=== PATIENT | male | born 1940 | race Caucasian/White ===

== ENCOUNTER 2017-11-02 10:17 | Inpatient (IN) | payer OTHER, BC ==
[2017-11-02] MEDS ORDERED: BISACODYL 10 MG SUPP PR PRN (14:58)
[2017-11-02] MEDS ORDERED: ACETAMINOPHEN 325 MG TAB PO PRN (15:54)
--- NOTE | 2017-11-02 16:57 | GHP ---
[f rep st] HISTORY AND PHYSICAL POST ADMISSION PHYSICIAN EVALUATION AND REHABILITATION TREATMENT PLAN DATE OF ADMISSION: 11/02/2017 DATE OF EVALUATION: November 02, 2017. TIME OF EVALUATION: 1505. REFERRING FACILITY: [facility]. REFERRING PHYSICIAN: Madyson Franklin MD IMPAIRMENT GROUP: 1.1. DATE OF ONSET: 10/28/2017. CONSULTING PHYSICIANS: He was seen in consultation by neurologist, Dr. Iraheta and railway station manager, Dr. Thomas Hunter. 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 ETIOLOGIC DIAGNOSIS: Left body involvement (right brain). HISTORY OF PRESENT ILLNESS: This patient was admitted to [facility] on 10/28/2017 with a chief complaint of left-sided weakness, facial droop, and ataxia. He was within the window for thrombolytics and was given tPA in the emergency department. CT of the head did not show any hemorrhage. He had minimal improvement after the tPA with continued left arm paralysis, left-sided facial droop and left lower extremity weakness. There was a troponin elevation to 1.4 at its peak, and there was a cardiology consultation because of this. His EKG showed right bundle branch block with left anterior fascicular block. He was treated with clopidogrel as well as aspirin. Additionally, he was started on amlodipine for blood pressure control and atorvastatin as he had dyslipidemia. He was working with physical therapy, occupational therapy, and speech therapy and was ready for inpatient rehabilitation. LABORATORIES AND STUDIES: During his stay, MRI showed an acute ischemic infarct to the right torie. Echocardiogram showed left ventricular hypertrophy and no other abnormalities noted. Lipid panel showed a cholesterol of 233, HDL of 48, LDL of 167, and triglycerides of 92. His coagulation studies were normal. Hemoglobin A1c was 5.7. Basic metabolic panel showed normal renal function and electrolytes. CBC had no abnormalities. CT of the head and neck showed minimal atherosclerotic calcification in the left carotid bifurcation and at the aortic arch with no significant stenosis and no arterial occlusion. PRECAUTIONS: He is a fall risk. He has aspiration precautions. ACTIVE COMORBIDITIES: He has no active tier 1, tier 2 or 3 comorbidities. PAST MEDICAL HISTORY: 1. Bilateral knee osteoarthritis. 2. Right eye blindness. PAST SURGICAL HISTORY: He had a hernia repair in his 20s. MEDICATIONS: Prior to admission. 1. Aspirin 81 mg p.o. daily. 2. Multivitamin. 3. Naproxen 220 mg p.o. twice daily. ADMISSION MEDICATIONS: 1. Amlodipine 5 mg p.o. daily. 2. Aspirin 81 mg p.o. daily. 3. Atorvastatin 40 mg p.o. at bedtime. 4. Clopidogrel 75 mg p.o. daily. 5. Multivitamin p.o. daily. ALLERGIES: There are no known drug allergies. FAMILY HISTORY: Noncontributory. SOCIAL HISTORY: He is . He lives with his . There are several stairs to enter the home and then 13 stairs to the 2nd floor bedroom. He has a local son who is involved in his care. 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 He has been a smoker but quit smoking approximately 6 months ago. He does not use alcohol. REVIEW OF SYSTEMS: He reports knee pain. He has had frequent urination and nurse reports small amounts. He feels thirsty and has a dry mouth. He denies chest pain and says he has not had chest pain or palpitations through the course of this event. He has blindness in the right eye. Otherwise, he denies vision changes. He has inability to move his left upper extremity at all. He has some movement of the left lower extremity. He has intact sensation throughout. He denies dyspnea. He has a rare cough with phlegm. He denies nausea, vomiting, constipation, or diarrhea. He has had reduced appetite since the stroke. He denies skin rash or skin breakdown. Otherwise, a 10-point review of systems is negative. PHYSICAL EXAM: VITAL SIGNS: Blood pressure is 133/68, heart rate is 100, respiratory rate is 20 and oxygen saturation is 91% on room air. Temperature and weight are not yet recorded. GENERAL: This is an obese man lying in bed, dressed in a hospital gown, appears his chronologic age, cooperative and in no acute distress. HEENT: Extraocular movements overall are intact. He appears to have resting adduction of the right eye. Left pupil is round and reactive to light. Right pupil does not react to light and it is unclear whether there is an afferent pupillary defect. Mucous membranes are dry. Dentition is in good condition. He has an uncrowded airway, Mallampati class 2. NECK: Supple. HEART: He is tachycardic. There are a regular rate and rhythm. There are no murmurs, rubs, or gallops. LUNGS: Clear to auscultation bilaterally. ABDOMEN: Soft, nontender, nondistended with normoactive bowel sounds. There is no hepatosplenomegaly. EXTREMITIES: There is no cyanosis, clubbing, or edema. Radial are 2+ bilaterally; pedal pulses are diminished . SKIN: He has long dystrophic nails and multiple callused areas on his plantar foot. NEUROLOGIC: Other than his right eye pupil and possible abnormal eye movements, he has a left facial droop however, he is able to maintain a labial seal. His tongue protrudes midline. Ptherwise cranial nerves II to XII are grossly intact. He has flaccid paralysis of the left upper extremity, but he is able to shrug his shoulder. He has limited movement to the left lower extremity. Sensation is intact to light touch. Plantar reflex is indeterminate on the right and upgoing on the left. There is no extinction to double simultaneous stimulation. CURRENT LEVEL OF FUNCTION: Regarding diet, feeding, and swallowing, he was on a regular diet with thin liquids, but he needed supervision. Grooming was done after set up. For bathing, dressing and toileting, he needed assistance. For bed mobility, he needed maximal assistance. For his transfers, sit to stand, he needed maximal assistance of 2 people, and nursing staff was using a lift for transfers. For balance, static balance sitting was fair plus; standing static balance was poor, requiring maximal assistance. He had poor dynamic balance. His endurance was poor. He was dependent on assistance for any evaluation of gait. He was noted to have dysarthria. Regarding cognition, he needed moderate assistance. He could follow simple directions. He was oriented times 3-4, but he appears to be more cognitive fully intact on exam today. IMPRESSION: This patient is a 77-year-old man who suffered a left pontine cerebrovascular accident on 10/28/2017. He met criteria for thrombolytics however, he did not have improved function after administration of tPA, and he comes to inpatient rehabilitation with profound left-sided weakness especially in the upper extremities. He has obesity as well, which adds to the mobility challenge in rehabilitation. He had myocardial ischemia coincident with a stroke as evidenced by an elevated troponin; however, there were no EKG changes. He has been placed on medications for cerebrovascular as well as coronary artery disease prophylaxis with atorvastatin, amlodipine, clopidogrel and aspirin. He is otherwise medically stable and ready for inpatient rehabilitation. The etiology of the stroke is not clear. Echocardiogram was normal except for left ventricular hypertrophy, and there was no atrial fibrillation seen on EKG. Cardiology plans to place a LINQ monitor for 30 day evaluation for occult atrial fibrillation. He has chronic bilateral knee pain for which he was taking naproxen. He also reports that he has had hyaluronic acid knee injections. He was planning on having repeat injections before the [employer] in May in which he is a usual participant. His goal is to complete a rehabilitation stay and then go home with family, home health care and any durable medical equipment that might be needed for a safe discharge. It is expected that he will achieve standby assist to moderate independence with mobility, ADLs, cognition and medication management. There will be medication education and neurologic education for the patient and his family and there will be family education for him to go home with needed services and equipment. He will have therapy with physical therapy, occupational therapy, and speech and language pathology for 45-60 minutes per day on 5-7 days of the week. His expected duration of stay is 14-17 days. It is anticipated that upon discharge he will continue to benefit from home health services including speech and language pathology, occupational therapy and physical therapy as well as a stroke support group. PLAN: 1. Debility and left upper and lower extremity hemiparesis, status post right pontine cerebrovascular accident. Physical therapy and occupational therapy to optimize mobility and activities of daily living towards discharge home at the standby assist to modified independent level. 2. Dysarthria, left facial droop and need for supervision with eating. He will have evaluation and treatment per Speech and Language Pathology. 3. Secondary stroke prophylaxis. Continue clopidogrel, aspirin, atorvastatin and blood pressure control. 4. Coronary artery disease status post myocardial infarction, non ST elevation. Continue medications as above as secondary prophylaxis. He is a candidate for a LINQ monitor to evaluate for occult atrial fibrillation after he discharges from inpatient rehabilitation. 5. Urinary frequency and urinating small amounts. He will have bladder scan. If the bladder scan is normal, we will proceed with a urinalysis. If he is retaining urine, we will treat with an alpha ton, most likely tamsulosin. 6. Bilateral knee pain. Unclear to the extent that this might impede his progress in therapy. We will order acetaminophen on a p.r.n. basis. If the pain is interfering with therapy, we will discuss use of other medications to include tramadol and opiates. We will avoid nonsteroidal anti-inflammatory drugs due to the risks that they hold. 7. Obesity and recent reduced appetite. He will have consultation with the dietitian. 8. Prophylaxis. He is high risk for DVT due to age, obesity, hemiparesis and reduced mobility. Will treat with enoxaparin 40 mg SQ QD and pantoprazole 40 mg QD for GI protection, especially with concomitant aspirin and clopidogrel. FOLLOWUP: The patient's primary care provider is Dr. Gabino Hahn. He is to follow up with railway station manager, Dr. Thomas Hunter and with neurologist, Dr. Giovanyn Iraheta. /[id number]/MODL MTDD
[2017-11-02] MEDS: ATORVASTATIN CALCIUM 40 MG TAB PO SCH (21:42)
[2017-11-03] MEDS: MULTIVITAMINS 1 EACH TAB PO SCH (09:29)
[2017-11-03] MEDS: ENOXAPARIN 40 MG/0.4 ML SYR SC SCH (09:29)
[2017-11-03] MEDS: CLOPIDOGREL BISULFATE 75 MG TAB PO SCH (09:29)
[2017-11-03] MEDS: ASPIRIN EC 81 MG TAB PO SCH (09:29)
[2017-11-03] MEDS: amLODIPine BESYLATE 5 MG TAB PO SCH (09:30)
--- NOTE | 2017-11-03 11:47 | SOAPPROG ---
SOAP Progress Note Assessment/Plan: Assessment: * Debility and left upper and lower extremity hemiparesis, status post right pontine cerebrovascular accident. * Physical therapy and occupational therapy to optimize mobility and activities of daily living towards discharge home at the standby assist to modified independent level. * Dysarthria, left facial droop and need for supervision with eating. * Evaluation and treatment per Speech and Language Pathology. * Secondary stroke prophylaxis. Continue clopidogrel, aspirin, atorvastatin and blood pressure control. * Coronary artery disease status post myocardial infarction, non ST elevation. Continue medications for secondary prophylaxis. * LINQ monitor to evaluate for occult atrial fibrillation after he discharges from inpatient rehabilitation. * Urinary frequency and urinating small amounts. * Bladder scan PVR 101 cc. Continue PRN bladder scans for PVR. * Initiate timed voiding. * Check urinalysis. * Consider oxybutynin. * Bilateral knee pain. * Will schedule acetaminophen 1000 mg Q 8 hr. * Consider tramadol. * Obesity and recent reduced appetite. He will have consultation with the dietitian. * Prophylaxis. He is high risk for DVT due to age, obesity, hemiparesis and reduced mobility. Will treat with enoxaparin 40 mg SQ QD and pantoprazole 40 mg QD for GI protection, especially with concomitant aspirin and clopidogrel. FOLLOWUP: The patient's primary care provider is Dr. Gabino Hahn. He is to follow up with wire mesh knitter, Dr. Thomas Hunter and with neurologist, Dr. Giovanny Iraheta. 11/03/17 14:56 Subjective: Complains of urinary frequency with small quantities. No dysuria, no fevers or chills, no cough or dyspnea, no flank pain. Slept well. Has knee pain bilaterally. Objective: Vital Signs Temp Pulse Resp BP Pulse Ox 36.7 C 75 18 161/86 H 92 11/03/17 07:48 11/03/17 07:48 11/02/17 19:56 11/03/17 09:30 11/03/17 07:48 11/02/17 11/03/17 11/04/17 05:59 05:59 05:59 Intake Total 300 238 Output Total 625 Balance -325 238 Physical Exam - Physical Exam General Appearance: WD/WN, alert, no apparent distress Respiratory: normal breath sounds, No crackles, No rhonchi, No wheezing Cardiac/Chest: regular rate, rhythm, No edema Skin: normal color, warm/dry Neuro/Psych: alert, normal mood/affect, oriented x 3, motor weakness (LUE & LLE hemiparesis), other (Observed arising from seated to standing and returning to seated with assistance of 2 physical therapists. Left upper extremity flaccid paralysis; appear to have some use of left lower extremity for standing.) ICD10 Worksheet Patient Problems: Problems Problem Status Onset CAD (coronary artery disease) Acute Right pontine CVA Acute
[2017-11-03] MEDS: SENNOSIDES 1 TAB PO PRN (21:06)
[2017-11-03] MEDS: ATORVASTATIN CALCIUM 40 MG TAB PO SCH (21:06)
[2017-11-03] MEDS: ACETAMINOPHEN 500 MG TAB PO PRN (21:13)
[2017-11-03] MEDS ORDERED: ACETAMINOPHEN 325 MG TAB PO SCH (22:00)
[2017-11-04] MEDS: POLYETHYLENE GLYCOL 3350 17 GM PKT PO SCH (08:30)
[2017-11-04] MEDS: amLODIPine BESYLATE 5 MG TAB PO SCH (08:31)
[2017-11-04] MEDS: MULTIVITAMINS 1 EACH TAB PO SCH (08:32)
[2017-11-04] MEDS: ASPIRIN EC 81 MG TAB PO SCH (08:32)
[2017-11-04] MEDS: CLOPIDOGREL BISULFATE 75 MG TAB PO SCH (08:32)
[2017-11-04] MEDS: ENOXAPARIN 40 MG/0.4 ML SYR SC SCH (10:23)
--- NOTE | 2017-11-04 15:37 | SOAPPROG ---
SOAP Progress Note Assessment/Plan: Assessment: * Debility and left upper and lower extremity hemiparesis, status post right pontine cerebrovascular accident. * Physical therapy and occupational therapy to optimize mobility and activities of daily living towards discharge home at the standby assist to modified independent level. He is beginning to show some active movement of the left hip flexors and quadriceps. * Dysarthria, left facial droop and need for supervision with eating. * Evaluation and treatment per Speech and Language Pathology. * Secondary stroke prophylaxis. Continue clopidogrel, aspirin, atorvastatin and blood pressure control. * Coronary artery disease status post myocardial infarction, non ST elevation. Continue medications for secondary prophylaxis. DIETARY RECOMMENDS CHANGING TO CARDIAC DIET AND THEREFORE WILL PLACE THIS ORDER TODAY. * LINQ monitor to evaluate for occult atrial fibrillation after he discharges from inpatient rehabilitation. * Urinary frequency and urinating small amounts. UA was negative * Bladder scan PVR 101 cc. Continue PRN bladder scans for PVR. * Initiate timed voiding. * Consider oxybutynin. * Bilateral knee pain. Discussed with Physical therapy who is concerned that knee pain although intermittent, may interfere with progress with transfer and gait training. We will order topical analgesics such as lidocaine cream or capsaicin * Will schedule acetaminophen 1000 mg Q 8 hr. * Consider tramadol. * Obesity and recent reduced appetite. He will have consultation with the dietitian. * Prophylaxis. He is high risk for DVT due to age, obesity, hemiparesis and reduced mobility. Will treat with enoxaparin 40 mg SQ QD and pantoprazole 40 mg QD for GI protection, especially with concomitant aspirin and clopidogrel. Plan: 11/04/17 15:37 Subjective: No specific complaints this morning. No problems reported by nursing staff Objective: Vital Signs Temp Pulse Resp BP Pulse Ox 36.6 C 85 16 140/79 H 92 11/04/17 06:45 11/04/17 06:45 11/04/17 06:45 11/04/17 08:31 11/04/17 06:45 11/03/17 11/04/17 11/05/17 05:59 05:59 05:59 Intake Total 300 1378 598 Output Total 625 350 43 Balance -325 1028 555 Physical Exam - Physical Exam General Appearance: WD/WN, alert, no apparent distress Respiratory: lungs clear Cardiac/Chest: No edema, No JVD Abdomen: non-tender, soft Skin: normal color, warm/dry Extremities: No swelling, No Shelli's sign Neuro/Psych: motor weakness (Left hemiplegia with no active movement of left upper extremity; 2-/5 left hip flexor and quadriceps.) ICD10 Worksheet Patient Problems: Problems Problem Status Onset CAD (coronary artery disease) Acute Right pontine CVA Acute
[2017-11-04] MEDS: SENNOSIDES 1 TAB PO PRN (20:27)
[2017-11-04] MEDS: ATORVASTATIN CALCIUM 40 MG TAB PO SCH (20:27)
[2017-11-04] MEDS: ACETAMINOPHEN 500 MG TAB PO PRN (20:27)
[2017-11-04] MEDS: MELATONIN 3 MG TAB PO SCH (20:27)
[2017-11-05] MEDS: POLYETHYLENE GLYCOL 3350 17 GM PKT PO SCH (09:04)
[2017-11-05] MEDS: CLOPIDOGREL BISULFATE 75 MG TAB PO SCH (09:05)
[2017-11-05] MEDS: MULTIVITAMINS 1 EACH TAB PO SCH (09:05)
[2017-11-05] MEDS: ASPIRIN EC 81 MG TAB PO SCH (09:05)
[2017-11-05] MEDS: amLODIPine BESYLATE 5 MG TAB PO SCH (09:05)
[2017-11-05] MEDS: ENOXAPARIN 40 MG/0.4 ML SYR SC SCH (09:12)
--- NOTE | 2017-11-05 10:01 | SOAPPROG ---
SOAP Progress Note Assessment/Plan: Assessment: * Debility and left upper and lower extremity hemiparesis, status post right pontine cerebrovascular accident. * Physical therapy and occupational therapy. He has some heel cord tightness and I will talk to his physical therapist about making sure that this is being stretched daily. Patient also coached on visualization to contract left biceps , triceps and wrist/finger extensors as well as to perform active hip flexion and knee extension as much as possible during the day. * Dysarthria, left facial droop and need for supervision with eating. * Evaluation and treatment per Speech and Language Pathology. * Secondary stroke prophylaxis. Continue clopidogrel, aspirin, atorvastatin and blood pressure control. * Coronary artery disease status post myocardial infarction, non ST elevation. Continue medications for secondary prophylaxis. * LINQ monitor to evaluate for occult atrial fibrillation after he discharges from inpatient rehabilitation. * Urinary frequency and urinating small amounts. UA was negative * He voided 100 cc this morning with a postvoid residual of 100 cc. Therefore will begin oxybutynin this a.m.. * Bilateral knee pain. Discussed with Physical therapy who is concerned that knee pain although intermittent, may interfere with progress with transfer and gait training. Will order topical analgesics such as lidocaine cream or capsaicin * Will schedule acetaminophen 1000 mg Q 8 hr. * Consider tramadol. * Obesity and recent reduced appetite. He will have consultation with the dietitian. * Prophylaxis. He is high risk for DVT due to age, obesity, hemiparesis and reduced mobility. Will treat with enoxaparin 40 mg SQ QD and pantoprazole 40 mg QD for GI protection, especially with concomitant aspirin and clopidogrel. Plan: 11/04/17 15:37 11/05/17 09:57 Subjective: He reports he is having some spasms in his left leg which are nonpainful. Nursing reports the he voided 100 cc this a.m. and had a postvoid residual of 100 cc. He denies being on medications previously for BPH. He has no other complaints this morning. Objective: Vital Signs Temp Pulse Resp BP Pulse Ox 36.9 C 71 14 151/92 H 91 L 11/05/17 06:37 11/05/17 06:37 11/05/17 06:37 11/05/17 09:05 11/05/17 06:37 11/04/17 11/05/17 11/06/17 05:59 05:59 05:59 Intake Total 1378 834 360 Output Total 350 573 110 Balance 1028 261 250 Physical Exam - Physical Exam General Appearance: WD/WN, alert, no apparent distress Respiratory: lungs clear, normal breath sounds Cardiac/Chest: No edema Abdomen: normal bowel sounds, non-tender, soft Extremities: No swelling, No Shelli's sign Neuro/Psych: motor weakness (Left upper extremity flaccid. 2/5 left iliopsoas and quadriceps. Trace tibialis anterior. Left heel cord tightness is noted.) ICD10 Worksheet Patient Problems: Problems Problem Status Onset CAD (coronary artery disease) Acute Right pontine CVA Acute
[2017-11-05] MEDS: DICLOFENAC SODIUM 1% 100 GM GEL TP SCH ×3 (13:24→20:07)
[2017-11-05] MEDS: ACETAMINOPHEN 500 MG TAB PO PRN (20:04)
[2017-11-05] MEDS: ATORVASTATIN CALCIUM 40 MG TAB PO SCH (20:05)
[2017-11-05] MEDS: DOXAZOSIN MESYLATE 4 MG TAB PO SCH (20:05)
[2017-11-05] MEDS: MELATONIN 3 MG TAB PO SCH (20:05)
[2017-11-06] MEDS: DICLOFENAC SODIUM 1% 100 GM GEL TP SCH ×4 (05:34→21:21)
[2017-11-06] MEDS: ACETAMINOPHEN 500 MG TAB PO PRN (06:20)
[2017-11-06] MEDS: ENOXAPARIN 40 MG/0.4 ML SYR SC SCH (07:41)
[2017-11-06] MEDS: amLODIPine BESYLATE 5 MG TAB PO SCH (08:05)
[2017-11-06] MEDS: ASPIRIN EC 81 MG TAB PO SCH (08:05)
[2017-11-06] MEDS: CLOPIDOGREL BISULFATE 75 MG TAB PO SCH (08:05)
[2017-11-06] MEDS: MULTIVITAMINS 1 EACH TAB PO SCH (08:05)
[2017-11-06] MEDS: POLYETHYLENE GLYCOL 3350 17 GM PKT PO SCH (08:05)
--- NOTE | 2017-11-06 11:06 | SOAPPROG ---
SOAP Progress Note Assessment/Plan: Assessment: * Debility and left upper and lower extremity hemiparesis, status post right pontine cerebrovascular accident. * Physical therapy and occupational therapy. He has some heel cord tightness and I will talk to his physical therapist about making sure that this is being stretched daily. Patient also coached on visualization to contract left biceps , triceps and wrist/finger extensors as well as to perform active hip flexion and knee extension as much as possible during the day. * Dysarthria, left facial droop and need for supervision with eating. * Evaluation and treatment per Speech and Language Pathology. * Secondary stroke prophylaxis. Continue clopidogrel, aspirin, atorvastatin and blood pressure control. * Coronary artery disease status post myocardial infarction, non ST elevation. Continue medications for secondary prophylaxis. * LINQ monitor to evaluate for occult atrial fibrillation after he discharges from inpatient rehabilitation. * Urinary frequency and urinating small amounts. UA was negative. DECIDED TO BEGIN CARDURA 4 MG AT BEDTIME INSTEAD OF OXYBUTYNIN . * Bilateral knee pain. Discussed with Physical therapy who is concerned that knee pain although intermittent, may interfere with progress with transfer and gait training. NO IMPROVEMENT WITH DICLOFENAC GEL. WE WILL BEGIN TRAMADOL 50 MG THREE TIMES DAILY. * Will schedule acetaminophen 1000 mg Q 8 hr. * Obesity and recent reduced appetite. He will have consultation with the dietitian. * Prophylaxis. He is high risk for DVT due to age, obesity, hemiparesis and reduced mobility. Will treat with enoxaparin 40 mg SQ QD and pantoprazole 40 mg QD for GI protection, especially with concomitant aspirin and clopidogrel. Plan: 11/04/17 15:37 11/05/17 09:57 11/06/17 11:05 Subjective: HE HAD A QUESTION REGARDING THE CARDURA WHICH WAS INITIATED YESTERDAY. HE CONTINUES TO COMPLAIN OF BILATERAL KNEE PAIN, NOT IMPROVED WITH THE DICLOFENAC GEL. HE HAS NO OTHER COMPLAINTS. Objective: Vital Signs Temp Pulse Resp BP Pulse Ox 36.9 C 89 16 131/76 H 92 11/06/17 06:13 11/06/17 06:13 11/06/17 06:13 11/06/17 08:05 11/06/17 06:13 11/05/17 11/06/17 11/07/17 05:59 05:59 05:59 Intake Total 832 6736 636 Output Total 578 610 50 Balance 261 1138 586 Physical Exam - Physical Exam General Appearance: WD/WN, alert, no apparent distress Respiratory: chest non-tender, lungs clear, normal breath sounds Cardiac/Chest: No edema Abdomen: normal bowel sounds, non-tender, soft, distended Skin: normal color, warm/dry Neuro/Psych: motor weakness (LOGICAL EXAM CONSISTENT WITH LEFT CRYSTAL PLEGIA WITH LEFT UPPER EXTREMITY MORE INVOLVED THAN THE LOWER EXTREMITY. HAS SOME RECRUITMENT OF LEFT HIP FLEXORS AND QUADRICEPS, THE LATTER OF WHICH INDUCES SOME MUSCLE SPASM.) ICD10 Worksheet Patient Problems: Problems Problem Status Onset CAD (coronary artery disease) Acute Right pontine CVA Acute
[2017-11-06] MEDS: traMADol 50 MG TAB PO SCH ×3 (11:32→21:25)
[2017-11-06] MEDS: DOXAZOSIN MESYLATE 4 MG TAB PO SCH (21:21)
[2017-11-06] MEDS: ATORVASTATIN CALCIUM 40 MG TAB PO SCH (21:22)
[2017-11-06] MEDS: MELATONIN 3 MG TAB PO SCH (21:24)
[2017-11-07] MEDS: DICLOFENAC SODIUM 1% 100 GM GEL TP SCH ×4 (05:47→20:32)
[2017-11-07] MEDS: ENOXAPARIN 40 MG/0.4 ML SYR SC SCH (08:22)
[2017-11-07] MEDS: CLOPIDOGREL BISULFATE 75 MG TAB PO SCH (08:23)
[2017-11-07] MEDS: POLYETHYLENE GLYCOL 3350 17 GM PKT PO SCH (08:23)
[2017-11-07] MEDS: traMADol 50 MG TAB PO SCH ×2 (08:23→17:16)
[2017-11-07] MEDS: ASPIRIN EC 81 MG TAB PO SCH (08:23)
[2017-11-07] MEDS: SENNOSIDES 1 TAB PO PRN (08:23)
[2017-11-07] MEDS: MULTIVITAMINS 1 EACH TAB PO SCH (08:23)
[2017-11-07] MEDS: amLODIPine BESYLATE 5 MG TAB PO SCH (08:24)
--- NOTE | 2017-11-07 12:31 | SOAPPROG ---
SOAP Progress Note Assessment/Plan: Assessment: * Debility and left upper and lower extremity hemiparesis, status post right pontine cerebrovascular accident. * Physical therapy and occupational therapy. He has some heel cord tightness and I will talk to his physical therapist about making sure that this is being stretched daily. Patient also coached on visualization to contract left biceps , triceps and wrist/finger extensors as well as to perform active hip flexion and knee extension as much as possible during the day. * Dysarthria, left facial droop and need for supervision with eating. * Evaluation and treatment per Speech and Language Pathology. * Secondary stroke prophylaxis. Continue clopidogrel, aspirin, atorvastatin and blood pressure control. * Coronary artery disease status post myocardial infarction, non ST elevation. Continue medications for secondary prophylaxis. * LINQ monitor to evaluate for occult atrial fibrillation after he discharges from inpatient rehabilitation. * BLADDER MANAGEMENT-Urinary frequency and urinating small amounts. UA was negative. CARDURA 4 MG AT BEDTIME WAS STARTED LAST NIGHT. PATIENT REPORTS THAT HE IS VOIDING WITHOUT DIFFICULTY. NURSING WILL OBTAIN POSTVOID RESIDUALS. HE IS ALREADY ON TIMED VOIDS. HEMATURIA MAY BE DUE TO CATHETERIZATION YESTERDAY, HOWEVER WILL OBTAIN REPEAT UA TO RULE OUT UTI. . * Bilateral knee pain. Discussed with Physical therapy who is concerned that knee pain although intermittent, may interfere with progress with transfer and gait training. NO IMPROVEMENT WITH DICLOFENAC GEL. WE WILL BEGIN TRAMADOL 50 MG THREE TIMES DAILY. * Will schedule acetaminophen 1000 mg Q 8 hr. * Obesity and recent reduced appetite. He will have consultation with the dietitian. * Prophylaxis. He is high risk for DVT due to age, obesity, hemiparesis and reduced mobility. Will treat with enoxaparin 40 mg SQ QD and pantoprazole 40 mg QD for GI protection, especially with concomitant aspirin and clopidogrel. FOOT CARE-WILL PLACE ORDER FOR PODIATRY CONSULT FOR NAIL TRIMMING. Plan: 11/04/17 15:37 11/05/17 09:57 11/06/17 11:05 11/07/17 12:32 Subjective: NO COMPLAINTS THIS A.M.. NURSING REPORTS HE HAD A LITTLE BIT OF BLOOD IN HIS URINE THIS MORNING. HE DENIES DYSURIA OR FLANK PAIN. HE WAS CATHED LAST NIGHT. OF YET, NURSING DOES NOT HAVE A PVR FROM HIS MOST RECENT VOID. HE HAS NO NEW COMPLAINTS. A PODIATRY CONSULT HAS BEEN REQUESTED FOR NAIL TRIMMING. Objective: Vital Signs Temp Pulse Resp BP Pulse Ox 36.9 C 76 16 132/86 H 91 L 11/07/17 07:19 11/07/17 07:19 11/07/17 07:19 11/07/17 08:24 11/07/17 08:15 11/06/17 11/07/17 11/08/17 05:59 05:59 05:59 Intake Total 1748 2497 600 Output Total 610 500 345 Balance 1138 1997 255 Physical Exam - Physical Exam General Appearance: WD/WN, alert, no apparent distress Respiratory: chest non-tender, lungs clear, normal breath sounds Abdomen: normal bowel sounds, non-tender, soft Male Genitalia: other (URINE NOTED TO BE PINK) Neuro/Psych: motor weakness (LEFT HEMIPLEGIA. 2/5 LEFT HIP FLEXORS AND QUADRICEPS. LEFT LOWER EXTREMITY SPASMS NOTED WHEN ATTEMPTED TO EXTEND KNEE OR DORSIFLEX FOOT.) ICD10 Worksheet Patient Problems: Problems Problem Status Onset CAD (coronary artery disease) Acute Right pontine CVA Acute
[2017-11-07] MEDS: ATORVASTATIN CALCIUM 40 MG TAB PO SCH (20:30)
[2017-11-07] MEDS: MELATONIN 3 MG TAB PO SCH (20:33)
[2017-11-07] MEDS: DOXAZOSIN MESYLATE 4 MG TAB PO SCH (20:35)
[2017-11-08] MEDS: traMADol 50 MG TAB PO SCH ×3 (05:07→16:37)
[2017-11-08] MEDS: DICLOFENAC SODIUM 1% 100 GM GEL TP SCH ×4 (07:10→20:16)
[2017-11-08] MEDS: amLODIPine BESYLATE 5 MG TAB PO SCH (08:40)
[2017-11-08] MEDS: ASPIRIN EC 81 MG TAB PO SCH (08:41)
[2017-11-08] MEDS: POLYETHYLENE GLYCOL 3350 17 GM PKT PO SCH (08:41)
[2017-11-08] MEDS: ENOXAPARIN 40 MG/0.4 ML SYR SC SCH (08:41)
[2017-11-08] MEDS: CLOPIDOGREL BISULFATE 75 MG TAB PO SCH (08:41)
[2017-11-08] MEDS: MULTIVITAMINS 1 EACH TAB PO SCH (08:41)
--- NOTE | 2017-11-08 13:36 | SOAPPROG ---
SOAP Progress Note Assessment/Plan: Assessment: * Debility and left upper and lower extremity hemiparesis, status post right pontine cerebrovascular accident. * Initial functional independence measure 58. Mod to max assist for bed mobility and transfers. Has not yet ambulated. Mod to max assist of 2 to stand at rail. Mod assist for upper body dressing, total assist for lower body. * Continue Physical therapy and occupational therapy to optimize mobility and activities of daily living towards discharge home at the standby assist to modified independent level. * Dysarthria, left facial droop and need for supervision with eating. * Evaluation and treatment per Speech and Language Pathology. * Secondary stroke prophylaxis. Continue clopidogrel, aspirin, atorvastatin and blood pressure control. * Coronary artery disease status post myocardial infarction, non ST elevation. Continue medications for secondary prophylaxis. * LINQ monitor to evaluate for occult atrial fibrillation after he discharges from inpatient rehabilitation. * Urinary frequency and urinating small amounts. * Bladder scan PVR 101 cc. Continue PRN bladder scans for PVR. * Initiate timed voiding. * No UTI on urinalysis X 2. * Doxazosin is not effective. Will d/c 11/08/2017. 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 Continue condom catheter at night for now. * Hematuria. * Has not had urethral catheterization. * Likely related to dual anti-platelet therapy as well as enoxaparin. * Advise urology evaluation after discharge. * Bilateral knee pain. * Much improved with tramadol. * Obesity and recent reduced appetite. He will have consultation with the dietitian. * Prophylaxis. He is high risk for DVT due to age, obesity, hemiparesis and reduced mobility. Will treat with enoxaparin 40 mg SQ QD and pantoprazole 40 mg QD for GI protection, especially with concomitant aspirin and clopidogrel. Anticipated discharge date of 11/25/2017, home with . FOLLOWUP: The patient's primary care provider is Dr. Gabino Hahn. He is to follow up with articulation officer, Dr. Thomas Hunter and with neurologist, Dr. Giovanny Iraheta. 11/08/17 15:35 Subjective: Has not noticed any change in urination with doxazosin. Has return of strength to the left leg but reports the leg is "wonky." Does not note return of movement to the left upper extremity. Sleeping well; says he is learning to sleep on his back. Desires to continue the condom catheter at night as he does not have to get up to urinate. Otherwise without complaint. Objective: Vital Signs Temp Pulse Resp BP Pulse Ox 36.3 C 99 16 103/64 92 11/08/17 07:12 11/08/17 07:12 11/08/17 07:12 11/08/17 08:40 11/08/17 07:12 11/07/17 11/08/17 11/09/17 05:59 05:59 05:59 Intake Total 6025 1672 560 Output Total 500 770 380 Balance 1996 902 180 Physical Exam - Physical Exam General Appearance: WD/WN, alert, no apparent distress, obese Respiratory: normal breath sounds, No crackles, No rhonchi, No wheezing Cardiac/Chest: regular rate, rhythm, No diastolic murmur, No systolic murmur Skin: normal color, warm/dry Neuro/Psych: alert, normal mood/affect, oriented x 3, motor weakness (Left facial droop, left upper extremity flaccid paralysis. Has movement to the left lower extremity.) ICD10 Worksheet Patient Problems: Problems Problem Status Onset CAD (coronary artery disease) Acute Right pontine CVA Acute
[2017-11-08] MEDS: DOXAZOSIN MESYLATE 4 MG TAB PO SCH (20:16)
[2017-11-08] MEDS: MELATONIN 3 MG TAB PO SCH (20:16)
[2017-11-08] MEDS: ATORVASTATIN CALCIUM 40 MG TAB PO SCH (20:16)
[2017-11-09] MEDS: DICLOFENAC SODIUM 1% 100 GM GEL TP SCH ×4 (06:04→19:57)
[2017-11-09] MEDS: traMADol 50 MG TAB PO SCH ×4 (06:08→21:23)
[2017-11-09] MEDS: amLODIPine BESYLATE 5 MG TAB PO SCH (08:49)
[2017-11-09] MEDS: ASPIRIN EC 81 MG TAB PO SCH (08:52)
[2017-11-09] MEDS: MULTIVITAMINS 1 EACH TAB PO SCH (08:53)
[2017-11-09] MEDS: ENOXAPARIN 40 MG/0.4 ML SYR SC SCH (08:53)
[2017-11-09] MEDS: POLYETHYLENE GLYCOL 3350 17 GM PKT PO SCH (08:53)
[2017-11-09] MEDS: CLOPIDOGREL BISULFATE 75 MG TAB PO SCH (08:58)
[2017-11-09] MEDS: ATORVASTATIN CALCIUM 40 MG TAB PO SCH (19:56)
[2017-11-09] MEDS: SENNOSIDES 1 TAB PO SCH (19:56)
[2017-11-09] MEDS: MELATONIN 3 MG TAB PO SCH (19:56)
[2017-11-10] MEDS: DICLOFENAC SODIUM 1% 100 GM GEL TP SCH ×4 (07:07→22:51)
[2017-11-10] MEDS: PANTOPRAZOLE SODIUM 40 MG TAB PO SCH (07:56)
[2017-11-10] MEDS: ENOXAPARIN 40 MG/0.4 ML SYR SC SCH (07:56)
[2017-11-10] MEDS: CLOPIDOGREL BISULFATE 75 MG TAB PO SCH (07:56)
[2017-11-10] MEDS: ASPIRIN EC 81 MG TAB PO SCH (07:56)
[2017-11-10] MEDS: MULTIVITAMINS 1 EACH TAB PO SCH (07:56)
[2017-11-10] MEDS: POLYETHYLENE GLYCOL 3350 17 GM PKT PO SCH (07:57)
[2017-11-10] MEDS: traMADol 50 MG TAB PO SCH ×3 (07:57→21:19)
[2017-11-10] MEDS: SENNOSIDES 1 TAB PO SCH ×2 (07:57→20:06)
[2017-11-10] MEDS: FLUoxetine 10 MG CAP PO SCH (07:58)
[2017-11-10] MEDS: amLODIPine BESYLATE 5 MG TAB PO SCH (07:58)
--- NOTE | 2017-11-10 09:58 | PDOREHIP ---
Admission [facility] - Admission - 3 Day Assessment Period Admission Date/Day 1: 11/02/17 Day 2: 11/03/17 Day 3: 11/04/17 - Skin Conditions Unhealed Pressure Ulcer (1 or more/Stage 1 or >)-Admission: 0. No Discharge [facility] - Discharge - 3 Day Assessment Period 2 Days Prior to Anticipated Discharge Date: 11/23/17 1 Day Prior to Anticipated Discharge Date: 11/24/17 Anticipated Discharge Date: 11/25/17
--- NOTE | 2017-11-10 10:03 | SOAPPROG ---
SOAP Progress Note Assessment/Plan: 77-year-old male with pontine stroke complicated by knee osteoarthritis and urinary incontinence Today's update: Working with social work therapist to get injection of knees to facilitate inpatient rehabilitation. Getting bilateral plain films today, portable. Also will do a condom cath during the day today, evaluate quality of bladder scans by doing 1 clean catheterization. If patient is retaining urine would treat for symptomatic BPH as he states he has a history of that with frequent urination at night. If he is fully emptying his bladder, consider a trial of oxybutynin with low dose, mindful of the anticholinergic effects on cognition. A total of 40 min was spent on the floor in the care of the patient , the majority of which was spent counseling and coordination of care regarding knee injections. Remainder of plan below otherwise relatively unchanged. * Debility and left upper and lower extremity hemiparesis, status post right pontine cerebrovascular accident. * Initial functional independence measure 58. Mod to max assist for bed mobility and transfers. Has not yet ambulated. Mod to max assist of 2 to stand at rail. Mod assist for upper body dressing, total assist for lower body. * Continue Physical therapy and occupational therapy to optimize mobility and activities of daily living towards discharge home at the standby assist to modified independent level. * Dysarthria, left facial droop and need for supervision with eating. * Evaluation and treatment per Speech and Language Pathology. * Secondary stroke prophylaxis. Continue clopidogrel, aspirin, atorvastatin and blood pressure control. * Coronary artery disease status post myocardial infarction, non ST elevation. Continue medications for secondary prophylaxis. * LINQ monitor to evaluate for occult atrial fibrillation after he discharges from inpatient rehabilitation. * Urinary frequency and urinating small amounts. * Bladder scan PVR 101 cc. Continue PRN bladder scans for PVR. * Initiate timed voiding. * No UTI on urinalysis X 2. * Doxazosin is not effective. Will d/c 11/08/2017. 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 Continue condom catheter day and night for now * Hematuria. * Has not had urethral catheterization. * Likely related to dual anti-platelet therapy as well as enoxaparin. * Advise urology evaluation after discharge. * Bilateral knee pain. * Much improved with tramadol. * Still functionally limiting, working towards getting injections to help with symptom management while in rehab. X-rays pending * Obesity and recent reduced appetite. He will have consultation with the dietitian. * Prophylaxis. He is high risk for DVT due to age, obesity, hemiparesis and reduced mobility. Will treat with enoxaparin 40 mg SQ QD and pantoprazole 40 mg QD for GI protection, especially with concomitant aspirin and clopidogrel. Anticipated discharge date of 11/25/2017, home with . FOLLOWUP: The patient's primary care provider is Dr. Gabino Hahn. He is to follow up with isobutylene operator chief, Dr. Thomas Hunter and with neurologist, Dr. Giovanny Iraheta. 11/10/17 09:47 Subjective: Chief complaint bilateral knee pain No acute events overnight. Patient endorses ongoing knee pain interfering with therapy. He states he had injection of Synvisc a few years ago but does not remember the provider. He states that it was helpful. Additionally, the patient also states that he has had a history of prostate problems, most consistent by history with benign prostatic hypertrophy, frequent urination at night. He was never on any medications or other treatment for it as far as he knew. Working with social work to try to get additional history of his medical care. Patient denies any shortness of breath or chest pain, no new numbness, tingling, or weakness. Objective: Vital Signs Temp Pulse Resp BP Pulse Ox 36.9 C 75 17 146/84 H 92 11/10/17 07:26 11/10/17 07:26 11/10/17 07:26 11/10/17 07:58 11/10/17 07:26 11/09/17 11/10/17 11/11/17 05:59 05:59 05:59 Intake Total 1060 1280 354 Output Total 955 950 400 Balance 105 330 -46 Physical Exam - Physical Exam General Appearance: alert, no apparent distress EENT: No scleral icterus (R), No scleral icterus (L) Respiratory: No respiratory distress, No accessory muscle use Cardiac/Chest: normal peripheral pulses, regular rate, rhythm Skin: normal color, warm/dry, No cyanosis, No diaphoresis Neuro/Psych: alert, normal mood/affect, other (Left-sided weakness including facial and left arm, mild tingling in the right palm of the hand sensation is intact on the left hand) ICD10 Worksheet Patient Problems: Problems Problem Status Onset CAD (coronary artery disease) Acute Right pontine CVA Acute
--- NOTE | 2017-11-10 11:40 | SOAPPROG ---
Downtime Inpatient Late Entry SOAP Note: Seen and examined and record reviewed 11/09/2017. Continued to complain of bilateral knee pain. Reported history of knee injections several years ago. He says they were not corticosteroid injections but a lubricant. He had relief of pain after the injections. Otherwise he was without complaints. Vitals were notable for adequate blood pressure control and resolution of hypoxia from previous overnights. Exam was remarkable for normal heart and lung exam, left upper and lower extremity weakness, needing moderate assist of 2 for sliding board transfer. Assessment: * Debility and left upper and lower extremity hemiparesis, status post right pontine cerebrovascular accident. * Initial functional independence measure 58. Mod to max assist for bed mobility and transfers. Has not yet ambulated. Mod to max assist of 2 to stand at rail. Mod assist for upper body dressing, total assist for lower body. * Continue Physical therapy and occupational therapy to optimize mobility and activities of daily living towards discharge home at the standby assist to modified independent level. * Dysarthria, left facial droop and need for supervision with eating. * Evaluation and treatment per Speech and Language Pathology. * Secondary stroke prophylaxis. Continue clopidogrel, aspirin, atorvastatin and blood pressure control. * Coronary artery disease status post myocardial infarction, non ST elevation. Continue medications for secondary prophylaxis. * LINQ monitor to evaluate for occult atrial fibrillation after he discharges from inpatient rehabilitation. * Urinary frequency and urinating small amounts. * Bladder scan PVR 101 cc. Continue PRN bladder scans for PVR. * Initiate timed voiding. * No UTI on urinalysis X 2. * Doxazosin is not effective. D/C'd 11/08/2017. 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 Continue condom catheter at night for now. * Hematuria. * Has not had urethral catheterization. * Likely related to dual anti-platelet therapy as well as enoxaparin. * Advise urology evaluation after discharge. * Bilateral knee pain. * Improved with tramadol but still interfering with mobility. * Discussed 11/09/2017 with Orthopedic service sole conforming machine operator regarding Synvisc injection: they have not treated him in the past and would need to do a full assessment. Cannot see him on rehabilitation unit. Advise determining previous provider and referring for follow-up. * Obesity and recent reduced appetite. He will have consultation with the dietitian. * Prophylaxis. He is high risk for DVT due to age, obesity, hemiparesis and reduced mobility. Will treat with enoxaparin 40 mg SQ QD and pantoprazole 40 mg QD for GI protection, especially with concomitant aspirin and clopidogrel. Anticipated discharge date of 11/25/2017, home with . FOLLOWUP: The patient's primary care provider is Dr. Gabino Hahn. He is to follow up with drilling field specialist, Dr. Thomas Hunter and with neurologist, Dr. Giovanny Iraheta.
[2017-11-10] MEDS: FESOTERODINE FUMARATE 4 MG TAB.ER PO SCH (15:37)
[2017-11-10] MEDS: ATORVASTATIN CALCIUM 40 MG TAB PO SCH (20:05)
[2017-11-10] MEDS: MELATONIN 3 MG TAB PO SCH (20:06)
--- NOTE | 2017-11-10 21:21 | GCON ---
[f rep st] CONSULTATION ORTHOPEDIC CONSULTATION CHIEF COMPLAINT: Bilateral knee pain. HISTORY OF PRESENT ILLNESS: The patient is a 77-year-old male, who is currently in [facility] inpatient rehab center due to a stroke. He complains of bilateral knee pain that has been ongoing for years. He states that his left knee is worse than his right. He did have hyaluronic acid injections, Synvisc in the past in the bilateral knees which helped with the discomfort, done by Dr. Davis in 2015. The patient states that his discomfort is now interfering with ambulation and movement of the knees, specifically the left knee. He denies any other orthopedic complaints. PAST MEDICAL HISTORY: Bilateral knee osteoarthritis, right eye blindness, left upper and lower extremity hemiparesis due to history of stroke, CAD, hypertension, high cholesterol, obesity, depression, urinary retention. PAST SURGICAL HISTORY: Hernia repair in his 20s. MEDICATIONS: Aspirin 81 mg, multivitamin, amlodipine, atorvastatin, Plavix. ALLERGIES: No known drug allergies. FAMILY HISTORY: Noncontributory. REVIEW OF SYSTEMS: He reports bilateral knee pain, along with frequent urination. He also states he is thirsty frequently with a dry mouth. He has blindness in his right eye, otherwise he denies any vision changes. He is unable to move his left upper extremity and difficulty moving his left lower extremity. He denies any chest pain or palpitations. He denies dyspnea. He denies nausea, vomiting, constipation, or diarrhea. He does have a reduced appetite since the stroke. He denies skin rash or breakdown. Otherwise, a 10- point review of systems is negative. PHYSICAL EXAMINATION: VITAL SIGNS: Stable. Afebrile. GENERAL: Pleasant, NAD. HEENT: N/C/AT, EOMI. He does appear to have resting adduction of the right eye. Left pupil is round and reactive to light. Right pupil does not react to light and it is unclear whether there is an apparent pupil defect. Mucous membranes are dry. NECK: Nontender to palpation, full range of motion. MUSCULOSKELETAL: Exam of bilateral knees: There is no effusion, erythema, ecchymosis or color present. Active range of motion of the right knee is 0-120 degrees. No joint line tenderness laterally or medially. He is unable to actively range his left knee or control motor function LLE. Passive range of motion is painful and limited to about 40 - 90 degrees range of motion. There is no joint line tenderness laterally or medially on either knee. Distal pulse present in the bilateral lower extremities. SKIN: Warm, dry, and intact. NEUROLOGIC: Sensation is intact to light touch bilaterally in the lower extremities. Motor notable for 3/5 globally over LLE, intact RLE. Both calves NT, neg Shelli's. PSYCHIATRIC: Alert and oriented x3. Appropriate mood and affect. DIAGNOSTIC STUDIES: Xrays reviewed of the bilateral knees and show severe osteoarthritis bilaterally. IMPRESSION: Severe bilateral knee osteoarthritis with early/developing L knee contracture 2/2 CVA and L-sided hemiparesis. PLAN: Patient was seen and examined by myself and discussed and seen by Dr. Ahn after my exam. It was discussed with the patient that since he is having significant left knee pain, that we could offer him a cortisone injection at this time, and look in to possible MOSQUEDA injections if they can be approved by his insurance while admitted as in-pt rehab pt. The patient would like to go forward with this injection to help give him some relief. All the risks, benefits, alternatives and complications were explained to the patient, including increased risk of bleeding due to him being on Plavix, and other complications such as infection. The patient does understand this, and we did proceed with a left knee cortisone injection. PROCEDURE: Under sterile conditions, the left knee was prepped over the lateral para-patellar portal, sterile technique was used throughout and using a 25-gauge needle, 3 cc of lidocaine and 3 cc of Marcaine were injected into the patient's anterolateral portal and injection tract for local anesthesia. The syringe was then changed and 1 cc of Kenalog 40 was injected in the patient's left knee. Patient tolerated the procedure well and a Band-Aid was applied along with pressure for about 1 minute. An Mitesh wrap was also applied for further compression. The procedure was done with the patient seated. Continue with PT/OT with focus on L knee stretching and passive ROM to limit/ reverse contracture. If this is unattainable, consider botox injection under the guidance of his neurologist, to restore full extension of the L knee - without this, ambulation and LLE wt bearing will be impossible. It was also discussed that he should continue with conservative treatment and activities to his tolerance. Ice on the bilateral knees 20 minutes 3-4 times a day, along with analgesics as needed to decrease the discomfort. I did discuss with the patient that we could inject his right knee at a further date, in another 2-3 weeks, to space out the cortisone medicine. The patient does understand this. If he is discharged by that time, we can see him back in the office to go forward with this injection. All questions were answered to the patient's satisfaction. Note edited by and patient seen by Dr Ahn. F/u with Dr Ahn or Dr Davis as an out-pt once d/c'd from in-pt rehab. Please call with any questions. /[id number]
[2017-11-11] MEDS: DICLOFENAC SODIUM 1% 100 GM GEL TP SCH ×4 (06:33→20:09)
[2017-11-11] MEDS: POLYETHYLENE GLYCOL 3350 17 GM PKT PO SCH (08:26)
[2017-11-11] MEDS: amLODIPine BESYLATE 5 MG TAB PO SCH (08:27)
[2017-11-11] MEDS: traMADol 50 MG TAB PO SCH ×3 (08:28→20:03)
[2017-11-11] MEDS: CLOPIDOGREL BISULFATE 75 MG TAB PO SCH (08:28)
[2017-11-11] MEDS: MULTIVITAMINS 1 EACH TAB PO SCH (08:28)
[2017-11-11] MEDS: FESOTERODINE FUMARATE 4 MG TAB.ER PO SCH (08:28)
[2017-11-11] MEDS: ASPIRIN EC 81 MG TAB PO SCH (08:28)
[2017-11-11] MEDS: FLUoxetine 10 MG CAP PO SCH (08:28)
[2017-11-11] MEDS: PANTOPRAZOLE SODIUM 40 MG TAB PO SCH (08:28)
[2017-11-11] MEDS: SENNOSIDES 1 TAB PO SCH ×2 (08:32→20:03)
[2017-11-11] MEDS: ENOXAPARIN 40 MG/0.4 ML SYR SC SCH (08:40)
--- NOTE | 2017-11-11 14:52 | SOAPPROG ---
SOAP Progress Note Assessment/Plan: Assessment: * Debility and left upper and lower extremity hemiparesis, status post right pontine cerebrovascular accident. * Initial functional independence measure 55 on 11/04/2017, improved to 58on 11/11. Mod to max assist for bed mobility and transfers; improved to minimal to moderate assist of 2 for sliding board transfers. Mod assist for upper body dressing, total assist for lower body; will progress. Requires concrete step-by -step cuing. * Continue Physical therapy and occupational therapy to optimize mobility and activities of daily living towards discharge home at the stand assist to modified independent level. * Dysarthria, left facial droop and need for supervision with eating. * Has impulsivity and requires very concrete to cues to slow down and take small bites. * Continue Speech and Language Pathology. * Secondary stroke prophylaxis. Continue clopidogrel, aspirin, atorvastatin and blood pressure control. * Coronary artery disease status post myocardial infarction, non ST elevation. Continue medications for secondary prophylaxis. * LINQ monitor to evaluate for occult atrial fibrillation after he discharges from inpatient rehabilitation. * Urinary frequency and urinating small amounts. * Bladder scan PVR 101 cc. Continue PRN bladder scans for PVR. * Initiate timed voiding. * No UTI on urinalysis X 2. * Doxazosin is not effective. Will d/c 11/08/2017. * Fesoterodine initiated yesterday at 4 mg QD. Continue several days; if no improvement, increase to 8 mg QD. * Hematuria. * Has not had urethral catheterization. * Likely related to dual anti-platelet therapy as well as enoxaparin. * Advise urology evaluation after discharge. * Bilateral knee pain. * Improved with tramadol. * Improved one day after steroid + local anesthetic injection left knee. * Obesity and recent reduced appetite. He will have consultation with the dietitian. * Prophylaxis. He is high risk for DVT due to age, obesity, hemiparesis and reduced mobility. Will treat with enoxaparin 40 mg SQ QD and pantoprazole 40 mg QD for GI protection, especially with concomitant aspirin and clopidogrel. Attended staffing, 15 min. Discussed with case management, dietitian, nursing, PT, OT, WINDOW DRESSER. Anticipated discharge date of 11/25/2017, home with . Will need to achieve independence with transfers. FOLLOWUP: The patient's primary care provider is Dr. Gabino Hahn. He is to follow up with service consultant, Dr. Thomas Hunter and with neurologist, Dr. Giovanny Iraheta. 11/11/17 14:57 Subjective: Left knee feels a little better after receiving S steroid injection yesterday. Has not noticed a change in urinary frequency. Otherwise without complaints. Objective: Vital Signs Temp Pulse Resp BP Pulse Ox 36.3 C 75 17 125/61 H 94 11/11/17 07:50 11/11/17 07:50 11/11/17 07:50 11/11/17 08:27 11/11/17 07:50 11/10/17 11/11/17 11/12/17 05:59 05:59 05:59 Intake Total 1280 1444 472 Output Total 784 1525 1050 Balance 982 -81 -648 - Time Spent With Patient Time Spent With Patient: Greater than 35 min floor time today, including more than 50% of time in coordination of care during staffing meeting, and counseling patient. Physical Exam - Physical Exam General Appearance: WD/WN, alert, no apparent distress Respiratory: normal breath sounds, No crackles, No rhonchi, No wheezing Cardiac/Chest: regular rate, rhythm, No edema Skin: normal color, warm/dry Neuro/Psych: alert, normal mood/affect, oriented x 3, motor weakness (Left upper and lower extremity) ICD10 Worksheet Patient Problems: Problems Problem Status Onset CAD (coronary artery disease) Acute Right pontine CVA Acute
[2017-11-11] MEDS: ATORVASTATIN CALCIUM 40 MG TAB PO SCH (20:03)
[2017-11-11] MEDS: MELATONIN 3 MG TAB PO SCH (20:03)
[2017-11-12] MEDS: DICLOFENAC SODIUM 1% 100 GM GEL TP SCH ×4 (05:59→19:54)
[2017-11-12] MEDS: traMADol 50 MG TAB PO SCH ×3 (08:55→20:33)
[2017-11-12] MEDS: ASPIRIN EC 81 MG TAB PO SCH (08:55)
[2017-11-12] MEDS: ENOXAPARIN 40 MG/0.4 ML SYR SC SCH (08:55)
[2017-11-12] MEDS: MULTIVITAMINS 1 EACH TAB PO SCH (08:55)
[2017-11-12] MEDS: FESOTERODINE FUMARATE 4 MG TAB.ER PO SCH (08:55)
[2017-11-12] MEDS: CLOPIDOGREL BISULFATE 75 MG TAB PO SCH (08:55)
[2017-11-12] MEDS: FLUoxetine 10 MG CAP PO SCH (08:59)
[2017-11-12] MEDS: amLODIPine BESYLATE 5 MG TAB PO SCH (08:59)
[2017-11-12] MEDS: POLYETHYLENE GLYCOL 3350 17 GM PKT PO SCH (09:01)
[2017-11-12] MEDS: SENNOSIDES 1 TAB PO SCH ×2 (09:01→19:53)
[2017-11-12] MEDS: PANTOPRAZOLE SODIUM 40 MG TAB PO SCH (10:28)
--- NOTE | 2017-11-12 16:19 | HOSPPROG ---
Hospitalist Progress Note Assessment/Plan: Assessment: 77 yo M p/w R pontine CVA Plan: # CVA. R pontine, w/ residual debility and left upper and lower extremity hemiparesis, dysarthria - Initial functional independence measure 55 on 11/04/2017, improved to 58on 2017. Mod to max assist for bed mobility and transfers; improved to minimal to moderate assist of 2 for sliding board transfers. Mod assist for upper body dressing, total assist for lower body; will progress - Requires concrete [id number] cuing, small bites, DIRECTOR RETIREMENT care - Continue Physical therapy and occupational therapy to optimize mobility and activities of daily living towards discharge home at the standby assist to modified independent level. - Continue clopidogrel, aspirin, atorvastatin and amlodipine for blood pressure control. - LINQ monitor to evaluate for occult atrial fibrillation after he discharges from inpatient rehabilitation. # Coronary artery disease. Chronic, status post NSTEMI - Cont asa/plavix/statin # Polyuria. Urinary frequency and urinating small amounts. - Improving w/ Fesoterodine at 4 mg QD. # Microscopic Hematuria. Likely 2/2 dual anti-platelet therapy + levonox, no UTI on UA - Advise urology evaluation after discharge. # Osteoarthritis. Chronic, w/ bilateral knee pain and previous steroid inj - Improved with tramadol. - s/p steroid + local anesthetic injection left knee on 11/09 - Cont PRN icing - Outpt ortho f/u in 2-3 weeks for repeat inj # Obesity. Affects overall functional status Diet. Regular PPx. High risk, lovenox, on PPI for GI ppx, recommend discontinuing at discharge Code. DNR FOLLOWUP: The patient's primary care provider is Dr. Gabino Hahn. He is to follow up with multimedia educational specialist, Dr. Thomas Hunter and with neurologist, Dr. Giovanny Iraheta. Subjective: patient reports only one urination today s/p removing condom cath, left knee pain controlled Objective: Vital Signs Temp Pulse Resp BP Pulse Ox 36.8 C 78 16 152/89 H 91 L 11/12/17 07:40 11/12/17 07:40 11/12/17 07:40 11/12/17 08:59 11/12/17 07:40 11/11/17 11/12/17 11/13/17 05:59 05:59 05:59 Intake Total 1444 1108 780 Output Total 7542 7741 150 Balance -81 -704 630 - Physical Exam Constitutional: no apparent distress, appears nourished, not in pain, obese Cardiovascular: regular rate and rhythym, no murmur, rub, or gallop, No edema Respiratory: no respiratory distress, no rales or rhonchi, clear to auscultation Gastrointestinal: normoactive bowel sounds, soft, non-tender abdomen, no palpable masses, other (non-tender, reducible umbilical hernia) Musculoskeletal: other (non-tender L knee) Neurologic: AAOx3, sensation intact bilaterally, weakness (LUE/LLE paresis, left mouth palsy) Psychiatric: interacting appropriately, not anxious, not encephalopathic, thought process linear ICD10 Worksheet Patient Problems: Problems Problem Status Onset CAD (coronary artery disease) Acute Right pontine CVA Acute
[2017-11-12] MEDS: ATORVASTATIN CALCIUM 40 MG TAB PO SCH (19:53)
[2017-11-12] MEDS: MELATONIN 3 MG TAB PO SCH (19:54)
[2017-11-13] MEDS: PANTOPRAZOLE SODIUM 40 MG TAB PO SCH (06:49)
[2017-11-13] MEDS: DICLOFENAC SODIUM 1% 100 GM GEL TP SCH ×4 (06:49→19:59)
[2017-11-13] MEDS: ENOXAPARIN 40 MG/0.4 ML SYR SC SCH (08:00)
[2017-11-13] MEDS: traMADol 50 MG TAB PO SCH ×3 (08:01→22:55)
[2017-11-13] MEDS: POLYETHYLENE GLYCOL 3350 17 GM PKT PO SCH (08:01)
[2017-11-13] MEDS: ASPIRIN EC 81 MG TAB PO SCH (08:02)
[2017-11-13] MEDS: FLUoxetine 10 MG CAP PO SCH (08:02)
[2017-11-13] MEDS: FESOTERODINE FUMARATE 4 MG TAB.ER PO SCH (08:02)
[2017-11-13] MEDS: MULTIVITAMINS 1 EACH TAB PO SCH (08:02)
[2017-11-13] MEDS: amLODIPine BESYLATE 5 MG TAB PO SCH (08:02)
[2017-11-13] MEDS: CLOPIDOGREL BISULFATE 75 MG TAB PO SCH (08:02)
[2017-11-13] MEDS: SENNOSIDES 1 TAB PO SCH (08:03)
--- NOTE | 2017-11-13 13:02 | HOSPPROG ---
Hospitalist Progress Note Assessment/Plan: Assessment: 77 yo M p/w R pontine CVA Plan: # CVA. R pontine, w/ residual debility and left upper and lower extremity hemiparesis, dysarthria - Requires concrete [id number] cuing, small bites, COMMANDING OFFICER MOTORIZED [employer]QU[employer] care - Continue Physical therapy and occupational therapy to optimize mobility and activities of daily living towards discharge home at the standby assist to modified independent level. - Continue clopidogrel, aspirin, atorvastatin and amlodipine for blood pressure control. - LINQ monitor to evaluate for occult atrial fibrillation after he discharges from inpatient rehabilitation. - patient has begun using Et3arraf board for transfers # Coronary artery disease. Chronic, status post NSTEMI - Cont asa/plavix/statin # Polyuria. Urinary frequency and urinating small amounts. - Improved w/ Fesoterodine at 4 mg QD # Microscopic Hematuria. Likely 2/2 dual anti-platelet therapy + levonox, no UTI on UA - Advise urology evaluation after discharge. # Osteoarthritis. Chronic, w/ bilateral knee pain and previous steroid inj - Improved with tramadol. - s/p steroid + local anesthetic injection left knee on 11/09 - Cont PRN icing - Outpt ortho f/u in 2-3 weeks for repeat inj # Obesity. Affects overall functional status Diet. Regular PPx. High risk, lovenox, on PPI for GI ppx, recommend discontinuing at discharge Code. DNR FOLLOWUP: The patient's primary care provider is Dr. Gabino Hahn. He is to follow up with executive asst, Dr. Thomas Hunter and with neurologist, Dr. Giovanny Iraheta. Subjective: patient reports only 1 episode of urination this AM, pain controlled L knee Objective: Vital Signs Temp Pulse Resp BP Pulse Ox 36.5 C 80 17 134/67 H 89 L 11/12/17 19:44 11/12/17 23:21 11/12/17 19:44 11/13/17 08:02 11/12/17 23:21 11/12/17 11/13/17 11/14/17 05:59 05:59 05:59 Intake Total 1108 1370 200 Output Total 1925 1800 400 Balance -817 -430 -200 - Physical Exam Constitutional: no apparent distress, not in pain, chronically ill appearing, No uncomfortable Cardiovascular: regular rate and rhythym, no murmur, rub, or gallop, edema ( trace bialt LE), No irregularly irregular Respiratory: no respiratory distress, no rales or rhonchi, clear to auscultation Gastrointestinal: normoactive bowel sounds, soft, non-tender abdomen, no palpable masses Musculoskeletal: other (no tenderness / effusion L knee) Neurologic: AAOx3, sensation intact bilaterally, weakness (distal LUE/LLE paresis most profound), facial droop (L) Psychiatric: interacting appropriately, not anxious, not encephalopathic, thought process linear ICD10 Worksheet Patient Problems: Problems Problem Status Onset CAD (coronary artery disease) Acute Right pontine CVA Acute
[2017-11-13] MEDS ORDERED: SENNOSIDES 1 TAB PO PRN (13:03)
[2017-11-13] MEDS ORDERED: POLYETHYLENE GLYCOL 3350 17 GM PKT PO PRN (13:03)
[2017-11-13] MEDS: MELATONIN 3 MG TAB PO SCH (19:59)
[2017-11-13] MEDS: ATORVASTATIN CALCIUM 40 MG TAB PO SCH (19:59)
[2017-11-14] MEDS: PANTOPRAZOLE SODIUM 40 MG TAB PO SCH (05:22)
[2017-11-14] MEDS: DICLOFENAC SODIUM 1% 100 GM GEL TP SCH ×4 (05:22→22:04)
[2017-11-14] MEDS: ENOXAPARIN 40 MG/0.4 ML SYR SC SCH (09:15)
[2017-11-14] MEDS: FESOTERODINE FUMARATE 4 MG TAB.ER PO SCH (09:15)
[2017-11-14] MEDS: MULTIVITAMINS 1 EACH TAB PO SCH (09:15)
[2017-11-14] MEDS: traMADol 50 MG TAB PO SCH ×3 (09:15→22:06)
[2017-11-14] MEDS: amLODIPine BESYLATE 5 MG TAB PO SCH (09:16)
[2017-11-14] MEDS: CLOPIDOGREL BISULFATE 75 MG TAB PO SCH (09:16)
[2017-11-14] MEDS: FLUoxetine 10 MG CAP PO SCH (09:16)
[2017-11-14] MEDS: ASPIRIN EC 81 MG TAB PO SCH (09:16)
--- NOTE | 2017-11-14 15:38 | SOAPPROG ---
SOAP Progress Note Assessment/Plan: Assessment: * Debility and left upper and lower extremity hemiparesis, status post right pontine cerebrovascular accident. * Initial functional independence measure 55 on 11/04/2017, improved to 58 on 09/2018. Mod to max assist for bed mobility and transfers; improved to minimal to moderate assist of 2 for sliding board transfers. Beginning to stand as of but needs assist of 2. Mod assist for upper body dressing, total assist for lower body; will progress. Requires concrete [id number] cuing. * Continue Physical therapy and occupational therapy to optimize mobility and activities of daily living towards discharge home at the [facility] assist to modified independent level. * Dysarthria, left facial droop and need for supervision with eating. * Has impulsivity and requires very concrete to cues to slow down and take small bites. * Continue Speech and Language Pathology. * Secondary stroke prophylaxis. Continue clopidogrel, aspirin, atorvastatin and blood pressure control. * Coronary artery disease status post myocardial infarction, non ST elevation. Continue medications for secondary prophylaxis. * LINQ monitor to evaluate for occult atrial fibrillation after he discharges from inpatient rehabilitation. * Urinary frequency and urinating small amounts. * Bladder scan PVR 101 cc. Continue PRN bladder scans for PVR. * Initiate timed voiding. * No UTI on urinalysis X 2. * Doxazosin is not effective. Will d/c 11/08/2017. * Improved with fesoterodine. Hematuria. * Has not had urethral catheterization. * Likely related to dual anti-platelet therapy as well as enoxaparin. * Advise urology evaluation after discharge. * Bilateral knee pain. * Improved with tramadol and local anesthetic injection left knee. * Can follow-up with Orthopedics for right knee injection in 2 - 3 weeks. * Obesity and recent reduced appetite. He will have consultation with the dietitian. * Prophylaxis. He is high risk for DVT due to age, obesity, hemiparesis and reduced mobility. Will treat with enoxaparin 40 mg SQ QD and pantoprazole 40 mg QD for GI protection, especially with concomitant aspirin and clopidogrel. Very slow progress. Planning SNF discharge end of week, 11/18/2017. FOLLOWUP: The patient's primary care provider is Dr. Gabino Hahn. He is to follow up with strand galvanizer, Dr. Thomas Hunter and with neurologist, Dr. Giovanny Iraheta. Follow-up with Orthopedics Dr. Ahn for R knee injection in 2 - 3 weeks. 11/14/17 15:34 Subjective: Has R knee pain greater than L. Says R knee buckled on him twice today during therapy. Currently has urge to urinate but frequency much improved. O/W w/out complaint. Objective: Vital Signs Temp Pulse Resp BP Pulse Ox 36.9 C 94 16 148/78 H 91 L 11/13/17 18:15 11/13/17 18:15 11/13/17 18:15 11/14/17 09:16 11/13/17 18:15 11/13/17 11/14/17 11/15/17 05:59 05:59 05:59 Intake Total 1370 872 125 Output Total 1800 925 375 Balance -430 -53 -250 Physical Exam - Physical Exam General Appearance: WD/WN, alert, no apparent distress Respiratory: No respiratory distress, No accessory muscle use Cardiac/Chest: No edema Skin: normal color, warm/dry Neuro/Psych: alert, normal mood/affect, oriented x 3, motor weakness (Left upper and lower extremities.) ICD10 Worksheet Patient Problems: Problems Problem Status Onset CAD (coronary artery disease) Acute Right pontine CVA Acute
[2017-11-14] MEDS: ATORVASTATIN CALCIUM 40 MG TAB PO SCH (20:45)
[2017-11-14] MEDS: MELATONIN 3 MG TAB PO SCH (20:45)
[2017-11-15] MEDS: PANTOPRAZOLE SODIUM 40 MG TAB PO SCH (05:03)
[2017-11-15] MEDS: DICLOFENAC SODIUM 1% 100 GM GEL TP SCH ×4 (05:10→19:56)
[2017-11-15] MEDS: traMADol 50 MG TAB PO SCH ×3 (08:01→21:12)
[2017-11-15] MEDS: FLUoxetine 10 MG CAP PO SCH (08:01)
[2017-11-15] MEDS: ASPIRIN EC 81 MG TAB PO SCH (08:01)
[2017-11-15] MEDS: MULTIVITAMINS 1 EACH TAB PO SCH (08:01)
[2017-11-15] MEDS: FESOTERODINE FUMARATE 4 MG TAB.ER PO SCH (08:01)
[2017-11-15] MEDS: CLOPIDOGREL BISULFATE 75 MG TAB PO SCH (08:01)
[2017-11-15] MEDS: amLODIPine BESYLATE 5 MG TAB PO SCH (08:02)
[2017-11-15] MEDS: ENOXAPARIN 40 MG/0.4 ML SYR SC SCH (08:03)
--- NOTE | 2017-11-15 09:49 | SOAPPROG ---
SOAP Progress Note Assessment/Plan: 77-year-old male with pontine stroke complicated by knee osteoarthritis and urinary incontinence Today's update: Making slow progress, but severely limited by overall knee osteoarthritis, symptoms are better today for him over. Continues to have urinary frequency at very low volumes, increasing fesoterodine to 8 mg daily. Goal to discharge to long-term facility later this week, likely [facility] or [facility]. A total of 25 min was spent on the floor in the care patient, the majority of which was spent on the counseling and coordination of care regarding discharge plan * Debility and left upper and lower extremity hemiparesis, status post right pontine cerebrovascular accident. * Initial functional independence measure 55 on 11/04/2017, improved to 58 on 09/2018. Mod to max assist for bed mobility and transfers; improved to minimal to moderate assist of 2 for sliding board transfers. Beginning to stand as of but needs assist of 2. Mod assist for upper body dressing, total assist for lower body; will progress. Requires concrete [id number] cuing. * Continue Physical therapy and occupational therapy to optimize mobility and activities of daily living towards discharge home at the [facility] assist to modified independent level. * Dysarthria, left facial droop and need for supervision with eating. * Has impulsivity and requires very concrete to cues to slow down and take small bites. * Continue Speech and Language Pathology. * Secondary stroke prophylaxis. Continue clopidogrel, aspirin, atorvastatin and blood pressure control. * Coronary artery disease status post myocardial infarction, non ST elevation. Continue medications for secondary prophylaxis. * LINQ monitor to evaluate for occult atrial fibrillation after he discharges from inpatient rehabilitation. * Urinary frequency and urinating small amounts. * Bladder scan PVR 101 cc. Continue PRN bladder scans for PVR. * Initiate timed voiding. * No UTI on urinalysis X 2. * Doxazosin is not effective. d/c 11/08/2017. * Improved with fesoterodine but continues to be symptomatic, increased to 8mg daily on 11/15. Hematuria. * Has not had urethral catheterization. * Likely related to dual anti-platelet therapy as well as enoxaparin. * Advise urology evaluation after discharge. * Bilateral knee pain. * Improved with tramadol and local anesthetic injection left knee. * Can follow-up with Orthopedics for right knee injection in 2 - 3 weeks. * Obesity and recent reduced appetite. He will have consultation with the dietitian. * Prophylaxis. He is high risk for DVT due to age, obesity, hemiparesis and reduced mobility. Will treat with enoxaparin 40 mg SQ QD and pantoprazole 40 mg QD for GI protection, especially with concomitant aspirin and clopidogrel. Very slow progress. Planning SNF discharge end of week, 11/18/2017. FOLLOWUP: The patient's primary care provider is Dr. Gabino Hahn. He is to follow up with radiology director, Dr. Thomas Hunter and with neurologist, Dr. Giovanny Iraheta. Follow-up with Orthopedics Dr. Ahn for R knee injection in 2 - 3 weeks. 11/10/17 09:47 11/15/17 09:45 Subjective: Chief complaint: Knee pain No acute events overnight. Patient endorses that knee pain is better after injection. Working on discharge to long-term facility later this week. Patient denies any new shortness of breath or chest pain, no new numbness, tingling, or weakness. He is using his incentive spirometer and had slightly low saturations with 1 L nasal cannula of oxygen at night. He states this is baseline, feels that therapy is going well. Objective: Vital Signs Temp Pulse Resp BP Pulse Ox 37.1 C 88 18 150/74 H 92 11/15/17 05:11 11/15/17 05:11 11/15/17 05:11 11/15/17 08:02 11/15/17 05:11 11/14/17 11/15/17 11/16/17 05:59 05:59 05:59 Intake Total 872 1365 236 Output Total 925 1000 75 Balance -53 365 161 Physical Exam - Physical Exam General Appearance: alert, no apparent distress EENT: No scleral icterus (R), No scleral icterus (L) Respiratory: lungs clear, normal breath sounds, No respiratory distress, No accessory muscle use, No decreased breath sounds Cardiac/Chest: normal peripheral pulses, regular rate, rhythm, No edema Skin: normal color, warm/dry, No cyanosis Extremities: No pedal edema, No swelling Neuro/Psych: alert, normal mood/affect, other (Weakness on the left upper limb, less than 3/5.) ICD10 Worksheet Patient Problems: Problems Problem Status Onset CAD (coronary artery disease) Acute Right pontine CVA Acute
[2017-11-15] MEDS: MELATONIN 3 MG TAB PO SCH (19:54)
[2017-11-15] MEDS: ATORVASTATIN CALCIUM 40 MG TAB PO SCH (19:55)
[2017-11-16] MEDS: PANTOPRAZOLE SODIUM 40 MG TAB PO SCH (05:33)
[2017-11-16] MEDS: DICLOFENAC SODIUM 1% 100 GM GEL TP SCH ×4 (05:33→19:59)
[2017-11-16] MEDS: amLODIPine BESYLATE 5 MG TAB PO SCH (07:54)
[2017-11-16] MEDS: MULTIVITAMINS 1 EACH TAB PO SCH (07:55)
[2017-11-16] MEDS: ENOXAPARIN 40 MG/0.4 ML SYR SC SCH (07:55)
[2017-11-16] MEDS: traMADol 50 MG TAB PO SCH ×3 (07:55→21:57)
[2017-11-16] MEDS: CLOPIDOGREL BISULFATE 75 MG TAB PO SCH (07:55)
[2017-11-16] MEDS: FLUoxetine 10 MG CAP PO SCH (07:55)
[2017-11-16] MEDS: ASPIRIN EC 81 MG TAB PO SCH (07:55)
[2017-11-16] MEDS ORDERED: FESOTERODINE FUMARATE 8 MG TAB.ER PO SCH (09:00)
--- NOTE | 2017-11-16 14:02 | SOAPPROG ---
SOAP Progress Note Assessment/Plan: Assessment: * Debility and left upper and lower extremity hemiparesis, status post right pontine cerebrovascular accident. * Initial functional independence measure 55 on 11/04/2017, improved to 58 on 09/2018. Mod to max assist for bed mobility and transfers; improved to minimal to moderate assist of 2 for sliding board transfers. Nursing does transfers with a Charissa lift. Beginning to stand as of 11/14/2017 but needs assist of 2. Mod assist for upper body dressing, total assist for lower body; will progress. Requires concrete [id number] cuing. * Continue Physical therapy and occupational therapy to optimize mobility and activities of daily living towards discharge home at the [facility] assist to modified independent level. * Dysarthria, left facial droop and need for supervision with eating. * Has impulsivity and requires very concrete to cues to slow down and take small bites. * Continue Speech and Language Pathology. * Secondary stroke prophylaxis. Continue clopidogrel, aspirin, atorvastatin and blood pressure control. * Coronary artery disease status post myocardial infarction, non ST elevation. Continue medications for secondary prophylaxis. * LINQ monitor to evaluate for occult atrial fibrillation after he discharges from inpatient rehabilitation. * Urinary frequency and urinating small amounts. * Bladder scan PVR 101 cc. Continue PRN bladder scans for PVR. * Initiate timed voiding. * No UTI on urinalysis X 2. * Doxazosin is not effective. Will d/c 11/08/2017. * Fesoterodine is not efffective. Will D/C starting 11/18/2017. * Advise Urology evaluation after discharge. Hematuria. * Has not had urethral catheterization. * Likely related to dual anti-platelet therapy as well as enoxaparin. * Advise urology evaluation after discharge. * Bilateral knee pain. * Improved with tramadol and local anesthetic injection left knee. * Can follow-up with Orthopedics for right knee injection in 2 - 3 weeks. * Obesity and recent reduced appetite. He will have consultation with the dietitian. * Prophylaxis. He is high risk for DVT due to age, obesity, hemiparesis and reduced mobility. Will treat with enoxaparin 40 mg SQ QD and pantoprazole 40 mg QD for GI protection, especially with concomitant aspirin and clopidogrel. Very slow progress. Planning SNF discharge end of week, 11/18/2017. FOLLOWUP: The patient's primary care provider is Dr. Gabino Hahn. He is to follow up with roads supervisor, Dr. Thomas Hunter and with neurologist, Dr. Giovanny Iraheta. Follow-up with Orthopedics Dr. Ahn for R knee injection in 2 - 3 weeks. 11/16/17 14:00 Subjective: Reports no improvement in urinary frequency with fesoterodine. Has frequent urge and urinates small amount. Beginning to have return of movement to the left lower extremity more so than left upper extremity. OT notes some increased tone to the left upper extremity. Objective: Vital Signs Temp Pulse Resp BP Pulse Ox 36.8 C 90 16 157/85 H 89 L 11/16/17 07:24 11/16/17 07:24 11/16/17 07:24 11/16/17 07:24 11/16/17 07:24 11/15/17 11/16/17 11/17/17 05:59 05:59 05:59 Intake Total 1365 922 480 Output Total 1000 940 175 Balance 365 -18 305 Physical Exam - Physical Exam General Appearance: WD/WN, alert, no apparent distress Respiratory: normal breath sounds, No crackles, No rhonchi, No wheezing Cardiac/Chest: regular rate, rhythm, No diastolic murmur, No systolic murmur Skin: normal color, warm/dry Neuro/Psych: alert, normal mood/affect, oriented x 3, motor weakness (OT doing passive range of motion with the left upper extremity. Reports he has some contractions of the biceps and triceps. Able to lift left lower extremity at the hip able to extend and flex with quadriceps and hamstrings.) ICD10 Worksheet Patient Problems: Problems Problem Status Onset CAD (coronary artery disease) Acute Right pontine CVA Acute
[2017-11-16] MEDS: ATORVASTATIN CALCIUM 40 MG TAB PO SCH (19:59)
[2017-11-16] MEDS: MELATONIN 3 MG TAB PO SCH (20:00)
[2017-11-17] MEDS: PANTOPRAZOLE SODIUM 40 MG TAB PO SCH (05:39)
[2017-11-17] MEDS: DICLOFENAC SODIUM 1% 100 GM GEL TP SCH ×4 (05:40→21:53)
[2017-11-17] MEDS: FLUoxetine 10 MG CAP PO SCH (08:30)
[2017-11-17] MEDS: traMADol 50 MG TAB PO SCH ×3 (08:30→20:28)
[2017-11-17] MEDS: ASPIRIN EC 81 MG TAB PO SCH (08:30)
[2017-11-17] MEDS: CLOPIDOGREL BISULFATE 75 MG TAB PO SCH (08:30)
[2017-11-17] MEDS: MULTIVITAMINS 1 EACH TAB PO SCH (08:30)
[2017-11-17] MEDS: ENOXAPARIN 40 MG/0.4 ML SYR SC SCH (08:31)
[2017-11-17] MEDS: amLODIPine BESYLATE 5 MG TAB PO SCH (08:31)
--- NOTE | 2017-11-17 08:47 | SOAPPROG ---
SOAP Progress Note Assessment/Plan: 77-year-old male with pontine stroke complicated by knee osteoarthritis and urinary incontinence Today's update: Last night patient did have some hypertension associated with urinary retention, was unable to straight cath. Hypertension resolved this morning after some urination overnight. Family is evaluating nursing home facilities today also, left foot slightly darker than the right but intact pulses and both feet are cool to the touch. Continue to monitor closely. A total of 35 min was spent on the floor in the care of the patient, the majority of which was spent counseling and coordination of care regarding discharge planning. * Debility and left upper and lower extremity hemiparesis, status post right pontine cerebrovascular accident. Impairments in mobility and self-care. * Initial functional independence measure 55 on 11/04/2017, improved to 58 on 09/2018. Mod to max assist for bed mobility and transfers; improved to minimal to moderate assist of 2 for sliding board transfers. Nursing does transfers with a Charissa lift. Beginning to stand as of 11/14/2017 but needs assist of 2. Mod assist for upper body dressing, total assist for lower body; will progress. Requires concrete [id number] cuing. * Continue Physical therapy and occupational therapy to optimize mobility and activities of daily living towards discharge home at the standby assist to modified independent level. * Dysarthria, left facial droop and need for supervision with eating. * Has impulsivity and requires very concrete to cues to slow down and take small bites. * Continue Speech and Language Pathology. * Secondary stroke prophylaxis. Continue clopidogrel, aspirin, atorvastatin and blood pressure control. Blood pressure improved with urination * Coronary artery disease status post myocardial infarction, non ST elevation. Continue medications for secondary prophylaxis. * LINQ monitor to evaluate for occult atrial fibrillation after he discharges from inpatient rehabilitation. * Urinary frequency and urinating small amounts. Has continued to have urinary frequency and incontinence despite trial of alpha blockers as well as anticholinergics. Continue condom catheter for now, will need to follow up with Urology after discharge. May benefit from concurrent alpha ton and anticholinergics at the same time, however we do not have time to try this before discharge. Continue timed voids and p.r.n. bladder scans * Advise Urology evaluation after discharge. Hematuria. Did not occur in the setting of any catheterization * Likely related to dual anti-platelet therapy as well as enoxaparin. * Advise urology evaluation after discharge. * Bilateral knee pain. * Improved with tramadol and local anesthetic injection left knee. * Can follow-up with Orthopedics for right knee injection in 2 - 3 weeks. * Obesity and recent reduced appetite. He will have consultation with the dietitian. * Prophylaxis. He is high risk for DVT due to age, obesity, hemiparesis and reduced mobility. Will treat with enoxaparin 40 mg SQ QD and pantoprazole 40 mg QD for GI protection, especially with concomitant aspirin and clopidogrel. Very slow progress. Planning SNF discharge end of week, 11/18/2017. Location pending family preference FOLLOWUP: The patient's primary care provider is Dr. Gabino Hahn. He is to follow up with bottler helper, Dr. Thomas Hunter and with neurologist, Dr. Giovanny Iraheta. Follow-up with Orthopedics Dr. Ahn for R knee injection in 2 - 3 weeks. Urology evaluation after discharge. 11/10/17 09:47 11/15/17 09:45 11/17/17 08:44 11/17/17 08:50 Subjective: Chief complaint: Discharge preparation No acute events night. Patient did have some mild hypertension associated with urinary retention of approximately 350 cc. His blood pressure came down as he was able to urinate gradually overnight. Continues to have incontinence and uses a condom catheter. Patient denies any pain including any leg pain, no new chest pain or shortness of breath, no new numbness, tingling, or weakness. Family is value waiting [employer] and flatter and nursing home facilities today. Objective: Vital Signs Temp Pulse Resp BP Pulse Ox 37.4 C 110 H 16 136/79 H 86 L 11/16/17 20:00 11/16/17 21:00 11/16/17 20:00 11/17/17 08:31 11/17/17 02:30 11/16/17 11/17/17 11/18/17 05:59 05:59 05:59 Intake Total 922 866 Output Total 940 475 Balance -18 391 - Pending Discharge Pending Discharge Within 24 Hours: Yes Pending Discharge Within 48 Hours: Yes Pending Discharge Date: 11/18/17 Pending Discharge Time: 11:00 Physical Exam - Physical Exam General Appearance: alert, no apparent distress Respiratory: lungs clear, normal breath sounds, No respiratory distress, No accessory muscle use Cardiac/Chest: normal peripheral pulses, regular rate, rhythm Peripheral Pulses: 2+: dorsalis-pedis (R), dorsalis-pedis (L) Skin: normal color, warm/dry, No cyanosis Extremities: other (Left foot appears more dusky than the right, this improved with movement of his foot. Dorsalis pedis pulses were 2+ bilaterally. Both feet were equally cool to the touch. Patient denies any pain or discomfort in either leg.) Neuro/Psych: alert, normal mood/affect, oriented x 3, other (Left hemiparesis, trace movement on the left arm) ICD10 Worksheet Patient Problems: Problems Problem Status Onset CAD (coronary artery disease) Acute Right pontine CVA Acute
--- NOTE | 2017-11-17 09:13 | PDOREHIP ---
Admission [facility] - Admission - 3 Day Assessment Period Admission Date/Day 1: 11/02/17 Day 2: 11/03/17 Day 3: 11/04/17 Discharge [facility] - Discharge - 3 Day Assessment Period 2 Days Prior to Anticipated Discharge Date: 11/16/17 1 Day Prior to Anticipated Discharge Date: 11/17/17 Anticipated Discharge Date: 11/18/17 - Discharge Skin Conditions Unhealed Pressure Ulcer (1 or more/Stage 1 or >)-Discharge: 0. No
[2017-11-17] MEDS: ATORVASTATIN CALCIUM 40 MG TAB PO SCH (20:28)
[2017-11-17] MEDS: MELATONIN 3 MG TAB PO SCH (20:28)
[2017-11-17 22:10] VITALS: PULSE 88; RESP 18
[2017-11-18] MEDS: PANTOPRAZOLE SODIUM 40 MG TAB PO SCH (05:33)
[2017-11-18] MEDS: DICLOFENAC SODIUM 1% 100 GM GEL TP SCH ×3 (05:34→16:01)
[2017-11-18 06:03] VITALS: BP 137/75; TEMP 98.2; O2SAT 91
[2017-11-18] MEDS: amLODIPine BESYLATE 5 MG TAB PO SCH (08:28)
[2017-11-18] MEDS: CLOPIDOGREL BISULFATE 75 MG TAB PO SCH (08:28)
[2017-11-18] MEDS: traMADol 50 MG TAB PO SCH ×2 (08:28→16:06)
[2017-11-18] MEDS: FLUoxetine 10 MG CAP PO SCH (08:28)
[2017-11-18] MEDS: MULTIVITAMINS 1 EACH TAB PO SCH (08:28)
[2017-11-18] MEDS: ASPIRIN EC 81 MG TAB PO SCH (08:28)
[2017-11-18] MEDS: ENOXAPARIN 40 MG/0.4 ML SYR SC SCH (09:34)
--- NOTE | 2017-11-18 19:37 | GDS ---
[f rep st] DISCHARGE SUMMARY ADMISSION DIAGNOSIS: Right pontine cerebrovascular accident with left upper and lower hemiparesis. DISCHARGE DIAGNOSIS: Right pontine cerebrovascular accident with left upper and lower hemiparesis. OTHER DISCHARGE DIAGNOSES: 1. Coronary artery disease, status post myocardial infarction. 2. Urinary retention. 3. Hematuria. 4. Bilateral knee osteoarthritis. CONSULTATIONS: He was seen in consultation by the orthopedic service, Amita Mackay, physician religious assistant. PROCEDURES: He had a left knee corticosteroid injection. COMPLICATIONS: There were none. HISTORY AND HOSPITAL COURSE: This patient is a 77-year-old man who was admitted to [facility] from [facility]. He presented there on 10/28/2017, with left-sided weakness , facial droop, and ataxia. He was diagnosed with a cerebrovascular accident and treated with tPA thrombolysis. He had minimal improvement with continued left arm paralysis, left-sided facial droop, and left lower extremity weakness. He had a [id number] myocardial infarction with a peak troponin of 1.4. He also had a right bundle branch block and left anterior fascicular block on EKG. He was treated with clopidogrel as well as aspirin. He was started on amlodipine for blood pressure control and atorvastatin for dyslipidemia. MR imaging showed an acute ischemic infarct of the right torie. He had progress in rehabilitation but it was slow, partly due to his obese body habitus. His initial functional independence measure was 55 on 11/04/2017, which is consistent with needing assistance in most or all mobility-related tasks and activities of daily living. He had improvement of only to 58, which is still at the fci level, on 11/11/2016. He needed moderate to maximal assistance for bed mobility and transfers, which improved to minimal to moderate assistance of 2 to accomplish a sliding board transfer. Nursing was transferring him with a Charissa lift. Toward the end of his stay, he was beginning to stand but needed assist of 2 and he needed moderate assistance for upper body dressing and total assistance for lower body dressing. He had dysphagia and he was noted to have impulsivity requiring very concrete cues to slow down his rate of eating and take small bites. He was, however, doing well on a regular textured diet and thin liquids. He had urinary frequency and was urinating small amounts. He had a trial of doxazosin which made no difference in his urinary symptoms. He had a trial of solifenacin and ultimately, he had urinary retention diagnosed by bladder scan. Moreno catheter was placed for urinary retention, and he will need to see Urology for full evaluation of his urodynamic status after his discharge. There was hematuria detected on urinalysis. This was prior to any urethral catheterization. He should follow up with Urology regarding hematuria, as well. He had bilateral knee pain which further limited his ability to stand and participate in transfers. He was seen by the orthopedic service, BUZZ Palacio, who did a left knee corticosteroid injection. He had improvement in his symptoms and the plan was to inject his right knee after 2-3 weeks. PHYSICAL EXAM ON DAY OF DISCHARGE: VITAL SIGNS: Blood pressure is 135/75, heart rate is 88, respiratory rate is 18, oxygen saturation is 91% on 1 L. This was at 6 in the morning, so he may still have been sleeping. He is not typically using oxygen during the day. Temperature was 36.8 degrees centigrade. GENERAL: This is an obese man sitting in a chair, cooperative and in no acute distress. HEART: Regular rate and rhythm with no murmurs, rubs, or gallops. LUNGS: Clear to auscultation bilaterally. ABDOMEN: Obese and benign. EXTREMITIES: There is no cyanosis, clubbing, or edema. NEUROLOGIC: He is alert and oriented x3. He has a left facial droop and dysarthria. He has left upper and lower extremity weakness. LABS AND STUDIES DURING HIS STAY: Hemoglobin A1c was 5.7. Urinalysis on 2016, showed 3+ blood, 50-182 red blood cells and 10-15 white blood cells per high-power field. DISCHARGE PLAN: 1. Condition upon discharge fair. 2. Activity: Limited as he is unable to ambulate and needs a Charissa lift for transfer. Otherwise, there are no restrictions. 3. Diet: Cardiac. 4. Date of next appointment: He has followup scheduled with neurologist, Dr. Iraheta, 3 days after his discharge from the half-way facility to which he is being transferred; with urologist, Dr. Allen Guido on 11/21/2017; with primary care provider, Dr. Iban Carey, approximately 3 days after discharge from half-way facility; with orthopedic surgeon, Dr. Maurisio Ahn on 11/29/2017 at 2 p.m.; and with whizzer, Dr. Thomas Hunter, on 11/23/2017, at 1:30 p.m. MEDICATIONS AT DISCHARGE: 1. Acetaminophen 1000 mg p.o. daily q.8 hours p.r.n. 2. Amlodipine 5 mg p.o. daily. 3. Aspirin 81 mg p.o. daily. 4. Atorvastatin 40 mg p.o. at bedtime. 5. Clopidogrel 75 mg p.o. daily. 6. Diclofenac topical 4 g to each knee 4 times daily. 7. Enoxaparin 40 mg subcutaneous daily. 8. Fluoxetine 20 mg p.o. daily. 9. Melatonin 3 mg p.o. at bedtime. 10. Multivitamin 1 p.o. daily. 11. Pantoprazole 40 mg p.o. daily. 12. Polyethylene glycol p.r.n. constipation. 13. Senna p.r.n. constipation. 14. Tramadol 50 mg p.o. three times daily. ISSUES TO BE ADDRESSED AT FOLLOWUP: 1. Functional status: He will continue PT and OT at the [facility], and he can follow up with his new attending there regarding his progress. 2. Dysarthria. He will continue to have speech therapy at the [facility] and again can follow up with his new attending physician. 3. Status post [id number] MO and cryptogenic etiology of stroke. He will follow up with whizzer, Dr. Hunter, and the plan is to have 30-day cardiac monitoring to rule out occult atrial fibrillation. 4. Urinary retention. He will follow up with Urology for further studies and assessment and treatment. 5. Hematuria, with followup planned with Urology. 6. Knee pain with followup with Orthopedic Surgery. Greater than 30 minutes was spent on this discharge including medication review , coordination of care, and counseling patient. Copy requested to: Primary Care Physician [facility] /[id number]/MODL MTDD
== END 2017-11-18 16:22 | DRG 57 ==
LOC: BREH 13:44
PROVIDERS: ADMIT Internal Medicine; ATTEND Internal Medicine
PROC: F08Z7ZZ Vocational Activities and Functional Community or Work Reintegration Skills Treatment (ICD-10-PCS; principal; 2017-11-02)
PROC: F07M3ZZ Motor Function Treatment of Musculoskeletal System - Whole Body (ICD-10-PCS; principal; 2017-11-02)
PROC: F0636ZZ Communicative/Cognitive Integration Skills Treatment of Neurological System - Whole Body (ICD-10-PCS; principal; 2017-11-02)
PROC: 3E0U33Z Introduction of Anti-inflammatory into Joints, Percutaneous Approach (ICD-10-PCS; 2017-11-10)
DX: I69.354 Hemiplegia and hemiparesis following cerebral infarction affecting left non-dominant side (principal); I69.392 Facial weakness following cerebral infarction; I69.393 Ataxia following cerebral infarction; I69.322 Dysarthria following cerebral infarction; M17.0 Bilateral primary osteoarthritis of knee; E78.5 Hyperlipidemia, unspecified; H54.40 Blindness, one eye, unspecified eye; I25.10 Atherosclerotic heart disease of native coronary artery without angina pectoris; I25.2 Old myocardial infarction; R35.0 Frequency of micturition; E66.9 Obesity, unspecified; Z68.34 Body mass index [BMI] 34.0-34.9, adult; I45.2 Bifascicular block
CPT/HCPCS: 92507-GN; 92522-GN; 92526-GN; 92610-GN; 97110-GO; 97110-GP; 97112-GO; 97112-GP; 97162-GP; 97167-GO; 97530-GO; 97530-GP; 97532-GO; 97535-GO; 97542-GP; J1650